=== PATIENT | male | born 1980 | race Caucasian/White ===

== ENCOUNTER 2024-04-26 01:42 | Emergency (ER) | payer OTHER ==
[~2024-04-26] VITALS: Ht 172.7 cm; Wt 68.0 kg
[2024-04-26 01:42] VITALS: BP 117/82; PULSE 70; RESP 16; O2SAT 98
--- NOTE | 2024-04-26 02:06 | ED.PDOC ---
History of Present Illness HPI Comments 43 y/o M, with a history of "brain tumors," DM, and seizures, is [id number] for complaint of chest rash, today. Patient is a poor historian and endorses on rapid development of a rash to his entire chest area after consuming "orange juice" and "vodka" an hour prior to ED arrival. Denies any fever, chills, itchiness, pain, or any additional associated symptoms at this time. 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 Past Medical History PAST MEDICAL HISTORY: DM, Seizures Past Medical History (Other): "brain tumors" Surgical History: Denies all surgeries Family History Family History: Reviewed,noncontributory to illness, No family hx of Cancer, No family hx of DM, No family hx of Heart david, No family hx of HTN, No family hx ofKidney david, No family hx of Liver david, No family hx of Lung david, No family hx of Stroke Social History Smoker: Non-Smoker Alcohol: Rarely Drugs: Denies Drug Use, Methamphetamine Lives In: Homeless Constitutional: denies: chills, diaphoresis, fatigue, fever, malaise, sweats, weakness, others EENTM: denies: blurred vision, double vision, ear bleeding, ear discharge, ear drainage, ear pain, ear ringing, eye pain, eye redness, hearing loss, mouth pain, mouth swelling, nasal discharge, nose bleeding, nose congestion, nose pain, photophobia, tearing, throat pain, throat swelling, voice changes, others Respiratory: denies: cough, hemoptysis, orthopnea, SOB at rest, shortness of breath, SOB with excertion, stridor, wheezing, others Cardiovascular: denies: chest pain, dizzy spells, diaphoresis, Dyspnea on exertion, edema, irregular heart beat, left arm pain, lightheadedness, palpitations, PND, syncope, others Gastrointestinal: denies: abdomen distended, abdominal pain, blood streaked bowels, constipated, diarrhea, dysphagia, difficulty swallowing, hematemesis, melena, nausea, poor appetite, poor fluid intake, rectal bleeding, rectal pain, vomiting, others Genitourinary: denies: burning, dysuria, flank pain, frequency, hematuria, incontinence, penile discharge, penile sore, pain, testicle pain, testicle swelling, urgency, others Neurological: denies: dizziness, fainting, headache, left sided numbness, left sided weakness, numbness, paresthesia, pre-existing deficit, right sided numbness, right sided weakness, seizure, speech problems, tingling, tremors, weakness, others Musculoskeletal: denies: back pain, gout, joint pain, joint swelling, muscle pain, muscle stiffness, neck pain, others Integumetry: reports: rash; denies: bruises, change in color, change in hair/nails, dryness, laceration, lesions, lumps, wounds, others Allergic/Immunocompromised: denies: Difficulty Healing, Frequent Infections, Hives, Itching, others Hematologic/Lymphatic: denies: anemia, blood clots, easy bleeding, easy bruising, swollen glands, others Endocrine: denies: excessive hunger, excessive sweating, excessive thirst, excessive urination, flushing, intolerance to cold, intolerance to heat, unexplained weight gain, unexplained weight loss, others Psychiatric: denies: anxiety, bipolar disorder, depression, hopeless, panic disorder, schizophrenia, sleepless, suicidal, others All Other Systems: Reviewed and Negative (Comprehensive review of systems negative unless otherwise stated above or in HPI) Physical Exam General Appearance: No Apparent Distress, Normal HEENT: Normal ENT Inspection, Pharynx Normal, TMs Normal Neck: Full Range of Motion, Non-Tender, Normal, Normal Inspection Respiratory: Chest Non-Tender, Lungs Clear, No Accessory Muscle Use, No Respiratory Distress, Normal Breath Sounds Cardiovascular: No Edema, No JVD, No Murmur, No Gallop, Normal Peripheral Pulses, Regular Rate/Rhythm Breast Exam: Deferred Gastrointestinal: No Organomegaly, Non Tender, No Pulsatile Mass, Normal Bowel Sounds, Soft Genitalia: Deferred Pelvic: Deferred Rectal: Deferred Extremities: No calf tenderness, Normal capillary refill, Normal inspection, Normal range of motion, Non-tender, No pedal edema Musculoskeletal : Apperance: Normal Neurologic: Alert, 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 Was a procedure done?: No Differential Dx Considerations may include: schizoaffective disorder, hallucinations, substance abuse, alcohol intoxication, allergy, urticaria, angioedema, anaphylaxis X-Ray, Labs, Meds, VS Vital Signs Date Time Temp Pulse Resp B/P (MAP) Pulse Ox O2 Delivery O2 Flow Rate FiO2 04/26/24 01:42 98.2 70 16 117/82 (94) 98 Time of 1ST Reevaluation: 02:20 Reevaluation 1ST: Unchanged Patient Education/Counseling: Diagnosis, Treatment, Prognosis, Need For Follow Up Family Education/Counseling: No Family Present Additional Information pt is homeless but in no distress. he tried to show me a rash on his chest, but there is no rash. pt has no oral labial swelling, no wheezes, no rash. he is stable for discharge Departure 1 Departure Time of Disposition: 02:09 Impression: Primary Impression: Homeless Additional Impression: Substance abuse Disposition: 01 HOME / SELF CARE / HOMELESS Condition: Good Additional Instructions: please utilize the homeless resources for intermediate and meals Discharged With: Self Critical Care Note Critical Care Time?: No Stability Stability form required: No Heart Score Heart Score: Heart Score Response (Comments) Value History N/A 0 EKG N/A 0 Age N/A 0 Risk Factors N/A 0 Troponin N/A 0 Total 0 I personally scribed for GUILLAUME JACOBS MD ([email or web address]) on 04/26/24 at 02:06. Electronically submitted by Geoff Maria ([email or web address]). GUILLAUME JACOBS MD Apr 26, 2024 02:06
[2024-04-26] MEDS: diphenhdrAMINE HCL 25 MG CAP PO ONE (02:52)
== END 2024-04-26 03:35 | disposition home or self-care (01) ==
LOC: EDBD 01:42 → ER 01:42
DX: F19.10 Other psychoactive substance abuse, uncomplicated (principal); E11.9 Type 2 diabetes mellitus without complications; F15.90 Other stimulant use, unspecified, uncomplicated; Z59.00 Homelessness unspecified

== ENCOUNTER 2024-04-28 13:08 | Emergency (ER) | payer OTHER ==
[~2024-04-28] VITALS: Ht 177.8 cm; Wt 68.4 kg
[2024-04-28 13:27] VITALS: BP 105/69; PULSE 76; RESP 16; O2SAT 94
--- NOTE | 2024-04-28 15:15 | ED.PDOC ---
History of Present Illness HPI Comments 43 year old male presents to the ED with a chief complaint of bilateral feet swelling onset 3 days. Patient states he began experiencing bilateral feet swelling, erythema, pain, [facility] not been [facility]. He states he used methamphetamine yesterday, experiencing auditory hallucinations. Patient states he wants antibiotic prescription for foot infection. PMHx DM, HTN. Denies any chest pain, shortness of breath, dizziness, suicidal ideation, homicidal ideation. No other symptoms or modifying factors present at this time. Chief Complaint: Mental Health Time Seen by MD: 14:55 Primary Care Provider: [place] Reviewed Notes: Medications, Allergies Allergies: Coded Allergies: Carbamazepine (Verified Allergy, Unknown, 04/28/24) Information Source: Patient Mode of Arrival: Ambulatory Severity: Moderate Timing: Days Duration: Since onset Prehospital treatment: None Past Medical History PAST MEDICAL HISTORY: DM, Seizures Surgical History: Denies all surgeries Family History Family History: Reviewed,noncontributory to illness, No family hx of Cancer, No family hx of DM, No family hx of Heart david, No family hx of HTN, No family hx ofKidney david, No family hx of Liver david, No family hx of Lung david, No family hx of Stroke Social History Smoker: Non-Smoker Alcohol: Rarely Drugs: Denies Drug Use, Methamphetamine Lives In: Homeless Musculoskeletal: reports: others (bilateral feet swelling, erythema ) Psychiatric: reports: others (Hallucinations ) Physical Exam General Appearance: No Apparent Distress, Normal HEENT: Normal ENT Inspection, Pharynx Normal, TMs Normal Neck: Full Range of Motion, Non-Tender, Normal, Normal Inspection Respiratory: Chest Non-Tender, Lungs Clear, No Accessory Muscle Use, No Respiratory Distress, Normal Breath Sounds Cardiovascular: No Edema, No JVD, No Murmur, No Gallop, Normal Peripheral Pulses, Regular Rate/Rhythm Breast Exam: Deferred Gastrointestinal: No Organomegaly, Non Tender, No Pulsatile Mass, Normal Bowel Sounds, Soft Genitalia: Deferred Pelvic: Deferred Rectal: Deferred Extremities: No calf tenderness, Normal capillary refill, Normal inspection, Normal range of motion, Non-tender, No pedal edema Musculoskeletal : Apperance: Normal 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 Was a procedure done?: No Differential Dx Considerations may include: Cellulitis, erythema X-Ray, Labs, Meds, VS Vital Signs Date Time Temp Pulse Resp B/P (MAP) Pulse Ox O2 Delivery O2 Flow Rate FiO2 04/28/24 13:27 98.5 76 16 105/69 (81) 94 Time of 1ST Reevaluation: 15:25 Reevaluation 1ST: Unchanged Patient Education/Counseling: Diagnosis, Treatment, Prognosis Family Education/Counseling: No Family Present Departure 1 Departure Time of Disposition: 15:52 (Patient with cellulitis of lower extremities. We w ill discharge patient home with outpatient follow up) Impression: Primary Impression: Cellulitis Qualified Codes: L03.119 - Cellulitis of unspecified part of limb Additional Impressions: Seizure disorder Substance abuse Disposition: 01 HOME / SELF CARE / HOMELESS Condition: Stable Additional Instructions: You have cellulitis. This is a skin infection. You were prescribed antibiotics. Please take as directed. You can take tylenol and motrin as needed for pain. It is important that you follow up with your regular doctor within one week to ensure you are doing well. If your symptoms worsen or you have any other concerns then please return to the ER. e-Prescriptions Sulfamethoxazole W/Trimethopri (Bactrim Ds Tablet) 1 Tab Tb 1 TAB PO BID for 5 Days, #10 TAB Prov: SANFORD ROSENBERG MD 04/28/24 Levetiracetam (KEPPRA TABLET) 500 Mg Tb 500 MG PO BID for 30 Days, #60 TAB Prov: SANFORD ROSENBERG MD 04/28/24 Discharged With: Self Critical Care Note Critical Care Time?: No Stability Stability form required: No I personally scribed for SANFORD ROSENBERG MD ([email or web address]) on 04/28/24 at 15:15. Electronically submitted by Meaghan Ceja ([email or web address]). SANFORD ROSENBERG MD Apr 28, 2024 15:15
[2024-04-28] MEDS ORDERED: KEP500T PO (15:55)
[2024-04-28] MEDS ORDERED: BACDST PO (15:55)
[2024-04-28] MEDS: SULFAMETHOX W/TRIMETH(800/160MG) DS TAB PO ONE (16:49)
[2024-04-28] MEDS: levETIRAcetam 500 MG TAB PO ONE (16:49)
== END 2024-04-28 16:49 | disposition home or self-care (01) ==
LOC: ER 13:08
DX: L03.115 Cellulitis of right lower limb (principal); L03.116 Cellulitis of left lower limb; G40.909 Epilepsy, unspecified, not intractable, without status epilepticus; F15.10 Other stimulant abuse, uncomplicated; E11.9 Type 2 diabetes mellitus without complications; I10 Essential (primary) hypertension; Z59.00 Homelessness unspecified; Z88.8 Allergy status to other drugs, medicaments and biological substances